=== PATIENT | male | born 1990 | race Caucasian/White ===

== ENCOUNTER → 2018-05-29 12:10 | Emergency (ER) | payer MEDICAID ==
--- NOTE | 2018-05-29 12:44 | ED ---
Substance Abuse/Use - HPI Summary HPI Summary: Patient is a 28 y/o M presenting to ED via EMS with complaints of possible synthetic marijuana usage. He states that a stranger at the [facility] offer him what he thought was tobacco or marijuana. Patient states that the man later told him that he was given synthetic marijuana. He states that there is a period of around 15-20 minutes that he does not recall. 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 Upon arrival to ED, patient became pale, near syncopal, and nauseous. In room, patient states he is slightly better. He denies depression, SI, and HI. No recent drug usage with the exception of marijuana is reported. When asked if he has any PMHx he responds, Yeah, heartbreak. When asked what caused this, he responds, My decisions. No PMHx of schizophrenia, bipolar disorder reported. On triage, pain is denied. Nothing is noted to aggravate/alleviate Sx. Home medications and allergies are reviewed. - History Of Current Complaint Stated Complaint: OVERDOSE Time Seen by Provider: 05/29/18 12:32 Hx Obtained From: Patient Onset/Duration of Drug/ETOH Abuse: Hours Ingestion History: Type/Name Of Drug - synthetic marijuana, reportedly Overdose Characteristics: Inhalation Severity Currently: None Aggravating Factor(s): Nothing Alleviating Factor(s): Nothing Associated Signs And Symptoms: Nausea, Other: - pale, near syncopal, memory loss - Allergies/Home Medications Allergies/Adverse Reactions: Allergies Allergy/AdvReac Type Severity Reaction Status Date / Time No Known Allergies Allergy Verified 05/29/18 14:22 PMH/Surg Hx/FS Hx/Imm Hx Sensory History: Denies: Hx Legally Blind, Hx Deafness Opthamlomology History: Denies: Hx Legally Blind EENT History: Denies: Hx Deafness Psychiatric History: Denies: Hx Schizophrenia, Hx Bipolar Disorder - Family History Known Family History: Negative: Blood Disorder Review of Systems Positive: Other - pale appearing Positive: Nausea Positive: Syncope - near Psychological: Other - synthetic marijuana usage, no SI All Other Systems Reviewed And Are Negative: Yes Physical Exam - Summary Physical Exam Summary: Appearance: Well appearing, no pain distress; depressed affect Skin: warm, dry, reflects adequate perfusion Head/face: normal Eyes: EOMI, MELINA ENT: normal Neck: supple, non-tender Respiratory: CTA, breath sounds present Cardiovascular: RRR, pulses symmetrical Abdomen: non-tender, soft Musculoskeletal: normal, strength/ROM intact Neuro: normal, sensory motor intact, A&Ox3 Triage Information Reviewed: Yes Vital Signs On Initial Exam: Initial Vitals Temp Pulse Resp BP Pulse Ox 98.4 F 90 10 108/75 97 05/29/18 12:28 05/29/18 12:28 05/29/18 12:28 05/29/18 12:28 05/29/18 12:28 Vital Signs Reviewed: Yes Diagnostics - Laboratory Result Diagrams: 05/29/18 11:56 05/29/18 11:56 Lab Statement: Any lab studies that have been ordered have been reviewed, and results considered in the medical decision making process. Re-Evaluation - Re-Evaluation First Eval Re-Evaluation Time: 14:40 Change: Improved Comment: Patient reports that he is feeling better and wants to be discharged to home. He was discharged to home and instructed to follow up with PCP within 3 days. Course/Dx - Course Course Of Treatment: Patient is a 28 y/o M presenting to ED via EMS with complaints of possible synthetic marijuana usage. He states that a stranger at the [facility] offer him what he thought was tobacco or marijuana. Patient states that the man later told him that he was given synthetic marijuana. He states that there is a period of around 15-20 minutes that he does not recall. 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 Upon arrival to ED, patient became pale, near syncopal, and nauseous. In room, patient states he is slightly better. He denies depression, SI, and HI. No recent drug usage with the exception of marijuana is reported. When asked if he has any PMHx he responds, Yeah, heartbreak. When asked what caused this, he responds, My decisions. No PMHx of schizophrenia, bipolar disorder reported. On physical exam, depressed affect is noted. Bloodwork, tox screen were obtained. 1440 - Patient reports that he is feeling better and wants to be discharged to home. He was discharged to home and instructed to follow up with PCP within 3 days. - Diagnoses Differential Diagnosis/HQI/PQRI: Positive: Drug Abuse Provider Diagnoses: Substance abuse Discharge - Sign-Out/Discharge Documenting (check all that apply): Patient Departure - DISCHARGE - Discharge Plan Condition: Stable Disposition: HOME Patient Education Materials: Cannabis Abuse (ED) Referrals: [facility] [Outside] - 3 Days Additional Instructions: RETURN TO ED FOR ANY NEW OR WORSENING SYMPTOMS. FOLLOW UP WITH PRIMARY CARE PHYSICIAN WITHIN THREE DAYS. - Billing Disposition and Condition Condition: STABLE Disposition: Home - Attestation Statements Document Initiated by Geraldibe: Yes Documenting Scribe: DAVID CALLEJAS Provider For Whom Salvatore is Documenting (Include Credential): JOSEPH BRADFORD MD Scribe Attestation: DAVID Dawkins , scribed for JOSEPH BRADFORD MD on 05/29/18 at 1723. Scribe Documentation Reviewed: Yes Provider Attestation: The documentation as recorded by the DAVID garrett accurately reflects the service I personally performed and the decisions made by JOSEPH swartz MD Status of Scribe Document: Viewed
[2018-05-29 12:54] LABS: ABS Basophils 0.1 10^3/ul (0-0.2); ABS Eosinophils 0.2 10^3/ul (0-0.6); ABS Monocytes 0.4 10^3/ul (0-0.8); ABS Neutrophils 3.9 10^3/ul (1.5-7.7); ABS Nucleated RBC 0 10^3/ul; Hematocrit 42 % (42-52); Hemoglobin 14.4 g/dl (14.0-18.0); Lymphocyte % 18.2 %; Mean Corpuscular HGB Conc 34 g/dl (31-36); Mean Corpuscular Hemoglobin 30 pg (27-31); Mean Corpuscular Volume 90 fL (80-94); Nucleated Red Blood Cells % 0; Platelet Count 314 10^3/ul (150-450); Red Blood Count 4.73 10^6/ul (4.00-5.40); Red Cell Distribution Width 13 % (10.5-15); White Blood Count 5.5 10^3/ul (3.5-10.8)
[2018-05-29 13:10] LABS: ALT 9 U/L (7-52); AST 15 U/L (13-39); Albumin 4.5 g/dL (3.2-5.2); Albumin/Globulin Ratio 1.8 (1-3); Alkaline Phosphatase 47 U/L (34-104); Anion Gap 9 mmol/L (2-11); BUN/Creatinine Ratio 12.8 (8-20); Blood Urea Nitrogen 15 mg/dL (6-24); CO2 Carbon Dioxide 27 mmol/L (22-32); Calcium 9.5 mg/dL (8.6-10.3); Chloride 103 mmol/L (101-111); EGFR African American 91.2 (>60); EGFR Non-African American 75.4 (>60); Globulin 2.5 g/dL (2-4); Glucose 173 mg/dL (70-100); Potassium 3.9 mmol/L (3.5-5.0); Sodium 139 mmol/L (135-145)
[2018-05-29 14:47] LABS: Acetaminophen < 15 mcg/mL; Alcohol < 10 mg/dL (<10); Salicylate < 2.50 mg/dL (<30)
[2018-05-29 14:58] LABS: Urine Appearance Cloudy; Urine Bacteria Absent (Absent); Urine Bilirubin Negative (Negative); Urine Blood Negative (Negative); Urine Color Yellow; Urine Glucose Negative (Negative); Urine Ketones Trace (Negative); Urine Nitrite Negative (Negative); Urine Protein 1+(30 mg/dL) (Negative); Urine Red Blood Cell Absent (Absent); Urine Specific Gravity 1.026 (1.010-1.030); Urine Squamous Epithelial Cell Present (Absent); Urine Urobilinogen Positive (Negative); Urine White Blood Cell Absent (Absent)
[2018-05-29 15:02] LABS: TSH (Thyroid Stimulating Horm) 1.74 mcIU/mL (0.34-5.60)
[2018-05-29 15:11] VITALS: BP 125/62
[2018-05-29 15:18] LABS: Barbiturates Urine Screen None Detected (None Detect); Benzodiazepine Urine Screen None Detected (None Detect); Urine Cannabinoids Screen Presumptive Positive (None Detect)
== END | disposition home or self-care (01) ==
LOC: ED 12:10
DX: F19.10 Other psychoactive substance abuse, uncomplicated (principal)
CPT/HCPCS: 36415; 80053; 80307; 80320; 80329; 81003; 81015; 84443; 85025; 99282; G0480